=== PATIENT | male | born 1975 | race Caucasian/White ===

== ENCOUNTER 2017-01-11 17:17 | Emergency (ER) | payer OTHER ==
[2017-01-11 17:22] VITALS: BP 121/73; PULSE 78; TEMP 98.2; BMI 31.7
--- NOTE | 2017-01-11 17:59 | PDOC ---
History of Present Illness - General Chief Complaint: Ingrown toenail Stated Complaint: TOE INJURY Time Seen by Provider: 01/11/17 17:29 History Source: Patient - History of Present Illness Initial Comments: 01/11/17 17:47 Patient is a 41-year-old male with no past medical history who presents to the emergency department today because he has left great toe pain. Patient states that he was walking up the stairs 3 days ago when he stubbed his toe on the stair. Admits to pain in the toe. He states that he is concerned because there appears to be some black and blue under the toenail. And he would like it drained. Denies fevers, chills, numbness, tingling, weakness, gait change, hx of gout. Past History - Travel Traveled outside of the country in the last 30 days: No Close contact w/someone who was outside of country & ill: No - Past Medical History Allergies/Adverse Reactions: Allergies Allergy/AdvReac Type Severity Reaction Status Date / Time No Known Allergies Allergy Verified 01/11/17 17:18 Home Medications: Ambulatory Orders NK [No Known Home Medication] 01/27/15 Anemia: No Asthma: No Cancer: No Cardiac Disorders: No CVA: No COPD: No CHF: No Dementia: No Diabetes: No GI Disorders: No Disorders: No HTN: No Hypercholesterolemia: No Liver Disease: No Seizures: No Thyroid Disease: No Other medical history: none - Psycho/Social/Smoking Cessation Hx Anxiety: No Suicidal Ideation: No Smoking History: Never smoked Have you smoked in the past 12 months: No Information on smoking cessation initiated: No Hx Alcohol Use: No Drug/Substance Use Hx: No Substance Use Type: None 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 No: Gout , Joint Swelling, Joint Stiffness Integumentary: Yes: Bruising (L great toe nail) All Other Systems: Reviewed and Negative *Physical Exam - Vital Signs Last Vital Signs Temp Pulse Resp BP Pulse Ox 98.2 F 78 18 121/73 100 01/11/17 17:18 01/11/17 17:18 01/11/17 17:18 01/11/17 17:18 01/11/17 17:18 - Physical Exam General Appearance: Yes: Nourished, Appropriately Dressed, Other (Sitting in bed AAOx3 breathing easily). No: Apparent Distress Vascular Pulses: Dorsalis-Pedis (R): 2+, Doralis-Pedis (L): 2+ Musculoskeletal: negative: Decreased Range of Motion Extremity: positive: Normal Capillary Refill, Normal Range of Motion, Tender ( TTP over the L great toe nail), Other (Small subungal hematoma of the L great toe. The toe nail is flush against the skin with no bowing of the nail). negative: Swelling Integumentary: positive: Normal Color, Dry, Warm, Bruising (L great toe) Neurologic: positive: escrow clerk II-XII NML intact, Fully Oriented, Alert, Normal Mood/ Affect, Normal Response, Motor Strength 5/5 Medical Decision Making - Medical Decision Making 01/11/17 17:49 Patient is a patient is a 41-year-old male with no past medical history who presents to the emergency department today for a subungual hematoma. There is a very small hematoma that does not need to be drained at this time as there is no vascular compromise of the toe and there is no building pressure under the toenail. We'll obtain x-ray at this time to rule out a elijah fracture. We'll give Motrin for pain and reevaluate. 01/11/17 18:21 There is no fracture on x-ray. We will discharge home at this time with a podiatry referral. Patient seems happy with this plan. Patient is told to ice and elevate the toe, and medicate for pain. Patient understands all discharge instructions and all questions were answered answered at this time. *DC/Admit/Observation/Transfer Diagnosis at time of Disposition: Toe pain, left - Discharge Dispostion Disposition: HOME Condition at time of disposition: Good Admit: No - Referrals Referrals: Jeremy Reyes MD [Primary Care Provider] - Catrachito De Los Santos MD [Staff Physician] - - Patient Instructions Additional Instructions: Your x-ray today showed no broken bones. There is some bruising under the toe nail. This will grow out and heal. Follow up with podiatry within the week. You may use ibuprofen as needed for pain not to exceed 3g per day. You may use ice to reduce any swelling and keep the foot elevated when you are resting. Return to the ED if you have worsening pain, fevers, chills, or any changes in your symptoms
[2017-01-11] MEDS ORDERED: IBUPROFEN 600 MG TABLET (FP) PO ONE ×2 (18:24→18:30)
== END 2017-01-11 19:25 | disposition home or self-care (01) ==
LOC: JERFT 17:17
DX: S90.212A Contusion of left great toe with damage to nail, initial encounter (principal); W22.8XXA Striking against or struck by other objects, initial encounter; Y93.01 Activity, walking, marching and hiking; Y92.89 Other specified places as the place of occurrence of the external cause
CPT/HCPCS: 73630-TC-LT; 99281-25